=== PATIENT | male | born 2005 | race Caucasian/White ===

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

== ENCOUNTER 2024-06-16 22:26 | Emergency (ER) | payer OTHER ==
[~2024-06-16] VITALS: Ht 172.7 cm; Wt 80.7 kg
[~2024-06-16 22:26] MED LIST changes: +CLEOCIN HCL300 MG PO; +DOXYCYCLINE HY100 MG PO
[2024-06-16 22:33] VITALS: PULSE 85; RESP 18; TEMP 98.4
[2024-06-17] MEDS ORDERED: CYCLOBENZAPRINE5 MG PO (00:09)
[2024-06-17] MEDS ORDERED: IBUPROFEN600 MG PO (00:10)
[2024-06-17 00:18] VITALS: BP 139/66; PULSE 84; RESP 18; TEMP 98.4; O2SAT 97
== END 2024-06-17 00:18 | disposition home or self-care (01) ==
LOC: FSED 22:33
DX: M54.2 Cervicalgia (principal); M54.50 Low back pain, unspecified; V59.49XA Driver of pick-up truck or van injured in collision with other motor vehicles in traffic accident, initial encounter; Y99.0 Civilian activity done for income or pay; F90.9 Attention-deficit hyperactivity disorder, unspecified type
CPT/HCPCS: 72125; 72131; 99283